=== PATIENT | female | born 2000 | race Hispanic/Latino ===

== ENCOUNTER 2023-10-07 12:10 | Emergency (ER) | payer SELFPAY ==
[2023-10-07] MEDS ORDERED: Boostrix 0.5 ML (Tdap) VIAL (>/=7 yrs of age) ONE (12:23)
[2023-10-07] MEDS ORDERED: Bacitracin 1 PK ONE (12:40)
== END 2023-10-07 13:48 | disposition home or self-care (01) ==
LOC: ERS 12:10
DX: M25.562 Pain in left knee (principal); M79.602 Pain in left arm; Z55.6 Problems related to health literacy
CPT/HCPCS: 71046; 90471; 90715